=== PATIENT | male | born 1930 | race Two or more races ===

== ENCOUNTER 2016-08-19 21:24 | Inpatient (IN) ==
[2016-08-19] MEDS ORDERED: cefTRIAXone 1,000 MG in SODIUM CHLORIDE 0.9% 100 ML IV STA (22:10)
[2016-08-19] MEDS ORDERED: SODIUM CHLORIDE 0.9% 500 ML IV STA (22:10)
[2016-08-19] MEDS ORDERED: ALBUTEROL/IPRATROPIUM 3 ML NEB RESP TX STA (22:10)
[2016-08-19] MEDS ORDERED: cefTRIAXone 1,000 MG VIAL ONE (22:45)
[2016-08-19 22:46] LABS: INR 1.2; PT Patient Result 12.6 SECS
--- NOTE | 2016-08-19 22:55 | XRay Report ---
XR chest 1V portable Indication: Shortness of breath and fever. Chest one view: Comparison 11/11/2012. Bibasilar infiltrates are present. Lungs are somewhat hypoinflated as well. Borderline cardiomegaly noted. Right shoulder hemiarthroplasty is present. Impression: Bibasilar pneumonia. PROCEDURE INTERPRETED AT [facility] DEPARTMENT OF RADIOLOGY Final Report Signed by: German Bonilla M.D.
[2016-08-19 23:03] LABS: Albumin 2.8 G/DL (3.4-5.0); Bilirubin,Total 0.9 MG/DL (0.2-1.0); Calcium 8.1 MG/DL (8.5-10.1); Osmolality,Calculated 287.7 MOS/KG (273-304); Potassium 3.1 MMOL/L (3.5-5.1); Total Protein 5.8 G/DL (6.4-8.3)
[2016-08-19 23:12] LABS: Lactic Acid 1.3 MMOL/L (0.4-2.0)
[2016-08-19] MEDS ORDERED: PIPERACILLIN/TAZOBACTAM 3,375 MG in SODIUM CHLORIDE 0.9% 100 ML IV STA (23:18)
--- NOTE | 2016-08-19 23:20 | Emergency Department Note ---
Meagan Gomez Rolonda, am scribing for, and in the presence of, Loyd Jose MD 22:32. Rebeca Gomez Charles R, MD, personally performed the services described in this documentation, ascribed by Jackie Rhodes in my presence, and it is both accurate and complete 320 . Arrival - Arrival Chief Complaint: Fever ED Nursing Triage Note: Pt arrives via ems from home with complaints of fever and burning with urination that started around two days ago. Ems reports that pt refused to take his medications for the last two days and per he was hallucinating today. Pt is awake alert and oriented at time of triage. Denies hallucinations at this time. Mode of Arrival: Stretcher Limitations: Altered Mental Status Source: Significant other (), Old Records Reviewed, RN Notes Reviewed - History of Present Illness HPI Narrative: Pt is an 85 y/o male who presents to the ED via stretcher with c/o fever with an onset of x2 days ago. Pt has a Hx significant for dementia so Hx will be limited, pt's will provide history. Pt's confirms that the pt has had increased confusion and spells of hallucinations today. Pt has had some dysuria which prompts to believe that pt has a UTI. Pt is incontinent bowel and bladder which he has a stage 2 decubitis ulcer to the sacral region. Pt has a swollen left arm secondary to lying of the left side chronically. In room pt is grunting which reports is normal for him due to pain in the sacral region. No other complaints/pain reported by pt's . Onset (ago): day(s) Consistency: constant Severity: moderate Allergies/Adverse Reactions: Allergies Allergy/AdvReac Type Severity Reaction Status Date / Time No Known Allergies Allergy Verified 08/19/16 21:30 Home Medications: Home Medications Medication Instructions Recorded Confirmed Type Allopurinol 100 mg PO DAILY 08/19/16 08/19/16 History Cilostazol [Pletal] 100 mg PO BID 08/19/16 08/19/16 History Donepezil [Aricept] 5 mg PO BEDTIME 08/19/16 08/19/16 History Metoprolol Succinate 100 mg PO DAILY 08/19/16 08/19/16 History Potassium Chloride [Klor-Con 10] 10 meq PO DAILY 08/19/16 08/19/16 History Tamsulosin [Flomax] 0.4 mg PO DAILY 08/19/16 08/19/16 History Review of System - Review of System ROS unobtainable: due to mental status 12 point system: reviewed and no additional remarkable complaints except as stated - Review of System Constitutional: Present: as per HPI, fever (low grade) Eyes: Absent: discharge Head/Ears/Nose/Throat: Absent: earache Respiratory: Absent: cough Cardiovascular: Absent: chest pain Gastrointestinal: Absent: abdominal pain Genitourinary male: Present: urgency Musculoskeletal: Absent: arm pain Skin: Absent: rash Neurological: Present: headache, confusion Psychiatric: Present: visual hallucinations Endocrine: Absent: cold intolerance Hematological/Lymphatic: Absent: easy bleeding Allergic/Immunologic: Absent: facial swelling Medical,Surgical,& Family Hx - Medical History Cardio: History of: Hypertension Neurology: History of: Dementia Rheumatology: History of;: Gout Genitourinary: History of: Prostate Problems - Social History Smoking Status: Never smoker Frequency of Alcohol Use: Occasionally Type of Drug Use: None Exam Vital Signs: Vital Signs Temperature 99.6 F 08/19/16 21:24 Pulse Rate 71 08/19/16 22:22 Respiratory Rate 22 08/19/16 22:22 Blood Pressure 180/94 08/19/16 21:24 O2 Sat by Pulse Oximetry 100 08/19/16 22:22 - General General appearance: alert, in distress (secondary to pain) - Head Head exam: Present: atraumatic, normocephalic - Eye Eye exam: Present: normal appearance, PERRL, EOMI - ENT ENT exam: Present: normal exam, normal oropharynx, mucous membranes moist. Absent: mucous membranes dry - Neck Neck exam: Present: normal inspection, full ROM. Absent: tenderness - Chest Chest inspection: Present: normal inspection, symmetric chest wall rise. Absent : tenderness - Respiratory Respiratory exam: Present: respiratory distress (pt appears to be working to catch his breath) - Cardiovascular Cardiovascular exam: Present: normal rhythm, tachycardia, normal heart sounds. Absent: regular rate - Abdominal Exam Abdominal exam: Present: distention (protuberant abdomen), hypoactive bowel sounds. Absent: tenderness, normal bowel sounds - Extremities Exam Extremities exam: Present: pedal edema (2+ edema in both extremities ). Absent : normal inspection (left arm edema) - Back Exam Back exam: Present: full ROM. Absent: normal inspection (stage 2 decubitis ulcer to the sacral region), tenderness - Neurological Exam Neurological exam: Present: alert, CN II-XII intact. Absent: oriented X3 (pt is confused) - Psychiatric Psychiatric exam: Present: other (hallicunations , confused) - Skin Skin exam: Present: warm (pt is warm to touch), dry, intact. Absent: rash Course - Consultations Consultation #1: Hospitalist will admit patient Time: 23:19 Results - Labs CBC & BMP: 08/19/16 23:15 08/19/16 21:58 Lab Results: I have reviewed the patients labs Labs: Laboratory Tests 08/19/16 21:58 INR 1.2 PT Patient/Control Mix 12.6 Laboratory Tests 08/19/16 21:58 Sodium 145 Potassium 3.1 L Chloride 106 Carbon Dioxide 33 H BUN 10 Creatinine 0.60 L GFR Calculation 100 Glucose 122 H Calcium 8.1 L AST 55 H Lactate Dehydrogenase 322 H C-Reactive Protein 5.63 H Total Protein 5.8 L Albumin 2.8 L Amylase 30 Laboratory Tests 08/19/16 23:15 WBC 9.1 RBC 3.66 L Hgb 11.1 L Hct 32.9 L Plt Count 275 Neut % (Auto) 78.3 H Lymph % (Auto) 11.7 L Lymph # (Auto) 1.1 L - Diagnostic Findings Procedure: Chest x-ray: report reviewed by me (Bibasilar pneumonia.), CT: report reviewed by me, image reviewed by me (Negative CT head) Critical Care Time Critical Care Time: Yes Total Critical Care Time: 60 Disposition Clinical Impression: Sepsis, Fever, Confusion, Hallucination, Community acquired pneumonia, Decubitus ulcer of sacral area, Debility, unspecified, Failure to thrive, Hypokalemia, Hematuria, UTI (urinary tract infection) Case discussed with: patient, patient's family Disposition: Still a Patient Condition: Guarded Time of Disposition: 23:50 Sepsis - Sepsis Classification of Sepsis: Sepsis - Physical Exam Respiratory exam: rhonchi, wheezes Capillary Refill: Less Than 3 Seconds Cardiovascular exam: tachycardia Skin exam: normal color
[2016-08-19 23:27] LABS: Basophils % 0.4 % (0.0-0.8); Eosinophils # 0.1 10*3/uL (0.0-0.87); Eosinophils % 1.3 % (0.00-10.9); Hematocrit 32.9 VOL% (42.0-52.0); Hemoglobin 11.1 GM/DL (14.0-18.0); Immature Granulocytes % 0.6 %; Immature Granulocytes Absolute 0.05 #; Lymphocytes # 1.1 10*3/uL (1.4-4.0); Lymphocytes % 11.7 % (21.2-54.2); Mean Corpuscular HGB Conc 33.7 GM/DL (32-36); Mean Corpuscular Hemoglobin 30 PG (27-34); Mean Corpuscular Volume 89.9 FL (87-102); Mean Platelet Volume 10.2 FL (9.6-12.0); Monocytes # 0.7 10*3/uL (0.11-0.8); Monocytes % 7.7 % (1.7-12.7); Neutrophils # 7.1 10*3/uL (1.4-7.4); Neutrophils % 78.3 % (38.7-73.9); Platelet Count 275 T/CUMM (130-400); Red Blood Count 3.66 MC/CUMM (3.8-5.5); Red Cell Distribution Width 16.8 % (9.3-17.3); White Blood Count 9.1 T/CUMM (4-12)
[2016-08-19] MEDS ORDERED: POTASSIUM CHLORIDE 20 MEQ TABLET PO STA (23:34)
[2016-08-19] MEDS ORDERED: PIPERACILLIN/TAZOBACTAM 3,375 MG VIAL IV ONE (23:36)
[2016-08-19] MEDS ORDERED: POTASSIUM CHLORIDE 20 MEQ TABLET PO ONE (23:38)
[2016-08-20 00:24] LABS: Apearance,Urine Slightly Hazy (Clear); Bilirubin,Urine Negative (Negative); Blood, Urine Large mg/dL (Negative); Glucose,Urine (UA) Negative (Negative); Hyaline Casts,Urine 7 /LPF (0-3); Ketones,Urine 5 mg/dL (Negative); Mucus,Urine Many /LPF (Occasional); Nitrite,Urine Negative (Negative); Protein,Urine 30 MG/DL; RBC,Urine 265 /HPF (0-4); Squamous Epithelial Cell,Urine Occasional /HPF (0-10); Urine Color Amber (Yellow); Urine Specific Gravity 1.021 (1.001-1.035); WBC,Urine 7 /HPF (0-6)
[2016-08-20] MEDS ORDERED: POTASSIUM CHLORIDE 20 MEQ PACK ONE (00:31)
[2016-08-20 01:00] LABS: Sedimentation Rate-Westergren 58 MM/HR (0-20)
[2016-08-20] MEDS ORDERED: DEXTROSE 50% 25 GM/50 ML VIAL IV PRN (01:09)
[2016-08-20] MEDS ORDERED: MORPHINE 2 MG/1 ML SYRINGE IV PRN (01:09)
[2016-08-20] MEDS ORDERED: ALBUTEROL/IPRATROPIUM 3 ML NEB RESP TX PRN (01:09)
[2016-08-20] MEDS ORDERED: ONDANSETRON 4 MG/2 ML VIAL IV PRN (01:09)
[2016-08-20] MEDS ORDERED: GLUCAGON 1 MG VIAL IM PRN (01:09)
--- NOTE | 2016-08-20 01:36 | Hospitalist History & Physical ---
Assessment and Plan (1) Confusion Status: Acute Current Visit: Yes (2) Hallucinations Status: Acute Current Visit: Yes (3) Community acquired pneumonia Status: Acute Current Visit: Yes (4) Decubitus ulcer of sacral region Status: Acute Current Visit: Yes (5) Debility Status: Acute Current Visit: Yes (6) Failure to thrive Status: Acute Current Visit: Yes (7) Hypokalemia Status: Acute Current Visit: Yes (8) UTI (urinary tract infection) Status: Acute Assessment and plan: Our plan for this patient will be admission to our service. Broad coverage antibiotics will be used. Will repeat labs in the morning. Continue home meds as appropriate. Have the patient on DT prophylaxis. Will change CODE STATUS to DNR per patient's wishes. Current Visit: Yes History of Present Illness Chief complaint: Confusion History of present illness: Mr. Tamayo is a 85 year old male with past medical history of early dementia was in his normal state of health until today. Apparently patient had been having some hallucinations. He urged his to call the police. [place] did call the police so they can come talk to him. Patient was convinced that people were in his backyard. She then decided to call EMS and was brought up here for further evaluation. Patient was found to have urinary tract infection and pneumonia I was consulted to admit him. Patient does admit to heavy wine consumption. Discussed CODE STATUS with him and he would not want to be put on the ventilator. Home Medications Medication Instructions Recorded Confirmed Type Allopurinol 100 mg PO DAILY 08/19/16 08/19/16 History Cilostazol [Pletal] 100 mg PO BID 08/19/16 08/19/16 History Donepezil [Aricept] 5 mg PO BEDTIME 08/19/16 08/19/16 History Metoprolol Succinate 100 mg PO DAILY 08/19/16 08/19/16 History Potassium Chloride [Klor-Con 10] 10 meq PO DAILY 08/19/16 08/19/16 History Tamsulosin [Flomax] 0.4 mg PO DAILY 08/19/16 08/19/16 History Allergies Allergy/AdvReac Type Severity Reaction Status Date / Time No Known Allergies Allergy Verified 08/19/16 21:30 Medical,Surgical,& Family Hx - Medical History Cardio: History of: Hypertension Neurology: History of: Dementia Rheumatology: History of;: Gout Genitourinary: History of: Prostate Problems - Surgical History Reproductive Surgeries: Surgical HX of;: Prostate Surgery - Family History Additional Family History: Dementia - Social History Smoking Status: Never smoker Frequency of Alcohol Use: Occasionally Type of Drug Use: None 12 point system: reviewed and no additional remarkable complaints except as stated Exam - Constitutional Vitals: Period Temp Pulse Resp BP Sys/Lipscomb Pulse Ox Last 24 Hr 99.6 F-99.6 F 71-90 20-22 122-180/83-94 92-100 General appearance: over weight - Head Head exam: Present: normal inspection - Eye Eye exam: Present: EOMI Pupils: Present: OK - ENT ENT exam: Present: normal exam - Neck Neck exam: Present: normal inspection - Respiratory Respiratory exam: Present: clear to auscultation bilaterally - Cardiovascular Cardiovascular exam: Present: regular rate and rhythm - GI/Abdominal GI/Abdominal exam: Present: normal bowel sounds - Extremities Exam Extremities exam: Present: normal inspection - Back Exam Back exam: Present: normal inspection - Neurological Exam Neurological exam: Present: alert, oriented X3 - Psychiatric Psychiatric exam: Present: normal affect, normal mood - Skin Skin exam: Present: normal color Results - Labs CBC & BMP: 08/19/16 23:15 08/19/16 21:58
[2016-08-20] MEDS: SODIUM CHLORIDE 0.9% 1,000 ML IV SCH (02:12)
[2016-08-20] MEDS: LORazepam 2 MG/1 ML VIAL IV PRN (05:32)
[2016-08-20 06:12] LABS: Albumin 2.6 G/DL (3.4-5.0); Bilirubin,Total 0.9 MG/DL (0.2-1.0); Calcium 7.6 MG/DL (8.5-10.1); Osmolality,Calculated 287.7 MOS/KG (273-304); Potassium 3.5 MMOL/L (3.5-5.1); Risk Ratio 3.19; Total Protein 5.7 G/DL (6.4-8.3); VLDL CHOLESTEROL 26.4 MG/DL
--- NOTE | 2016-08-20 06:28 | CT Report ---
History: Confusion Date: 08/20/2016 Study: CT head without contrast Comparison exam: No previous available Transaxial CT sections were obtained through the head without IV contrast. This CT exam was performed using one or more the following dose reduction techniques: Automated exposure control, adjustment of the MA and/or KV according to patient size, or use of iterative reconstruction technique. The study was also reviewed by [facility]. The ventricles are midline in position without evidence of hydrocephalus. There is mild to moderate diffuse cerebral atrophy. There is no mass or parenchymal hemorrhage. There is no gross CT evidence of acute cortical stroke. There is a moderate amount of patchy ill-defined decreased density in the periventricular white matter without mass effect compatible with changes of small vessel disease. There is a small wedge-shaped area of chronic infarction in the right occipital lobe. Well-defined small low densities compatible with chronic lacunar infarcts are noted in the right thalamus, putamen, and jade radiata. There is no extra-axial hematoma. There is no acute abnormality of the calvarium. There is some mild lobular mucosal thickening in the maxillary sinuses. Impression: No acute intracranial process. Chronic ischemic changes. Chronic maxillary sinus disease PROCEDURE INTERPRETED AT [facility] DEPARTMENT OF RADIOLOGY Final Report Signed by: Dr. Lois Moody
[2016-08-20 06:30] LABS: Basophils % 0.3 % (0.0-0.8); Eosinophils # 0.2 10*3/uL (0.0-0.87); Eosinophils % 1.9 % (0.00-10.9); Hematocrit 30.7 VOL% (42.0-52.0); Hemoglobin 10.1 GM/DL (14.0-18.0); Immature Granulocytes % 0.4 %; Immature Granulocytes Absolute 0.04 #; Lymphocytes # 0.6 10*3/uL (1.4-4.0); Lymphocytes % 6.7 % (21.2-54.2); Mean Corpuscular HGB Conc 32.9 GM/DL (32-36); Mean Corpuscular Hemoglobin 30 PG (27-34); Mean Corpuscular Volume 91.4 FL (87-102); Mean Platelet Volume 10.3 FL (9.6-12.0); Monocytes # 0.7 10*3/uL (0.11-0.8); Monocytes % 7.2 % (1.7-12.7); Neutrophils # 7.5 10*3/uL (1.4-7.4); Neutrophils % 83.5 % (38.7-73.9); Platelet Count 252 T/CUMM (130-400); Red Blood Count 3.36 MC/CUMM (3.8-5.5); Red Cell Distribution Width 17.1 % (9.3-17.3)
--- NOTE | 2016-08-20 08:53 | EKG Report ---
Stationary ECG Study [facility] ER Test Date: 08/19/2016 9:31:39 PM Pat Name: CECILIO SCHULTE Department: Room: 288 Gender: M Research Assistant Professor: : 1930 Requested by: Loyd Angeles Order Number: [id number] Reading MD: RANDY SPENCE Intervals Bim Rate: 88 P: 42 WY: 192 QRS: -81 QRSD: 154 T: 60 QT: 410 QTc: 456 Interpretive Statements SINUS RHYTHM RIGHT BUNDLE BRANCH BLOCK INFERIOR MYOCARDIAL INFARCTION, OF INDETERMINATE AGE Electronically Signed On 08-20-16 17:11:47 CDT by RANDY SPENCE [email or web address]
[2016-08-20] MEDS ORDERED: POTASSIUM CHLORIDE 10 MEQ TABLET PO SCH (09:00)
[2016-08-20] MEDS ORDERED: FOLIC ACID 1 MG TABLET PO SCH (09:00)
[2016-08-20] MEDS ORDERED: THIAMINE 100 MG TABLET PO SCH (09:00)
[2016-08-20] MEDS ORDERED: METOPROLOL SUCCINATE XL 100 MG TABLET PO SCH (09:00)
[2016-08-20] MEDS: PIPERACILLIN/TAZOBACTAM 3,375 MG in SODIUM CHLORIDE 0.9% 100 ML IV SCH ×2 (09:12→17:29)
[2016-08-20] MEDS: INSULIN REGULAR 100 UNIT/ML SUBCUT SCH ×4 (09:14→20:59)
[2016-08-20] MEDS ORDERED: FUROSEMIDE 40 MG/4 ML VIAL ONE (09:49)
[2016-08-20] MEDS: FUROSEMIDE 40 MG/4 ML VIAL IV SCH ×2 (09:53→17:24)
[2016-08-20] MEDS: MULTIVITAMIN (CENTRUM) TABLET PO SCH (09:57)
[2016-08-20] MEDS: TAMSULOSIN 0.4 MG CAPSULE PO SCH (09:57)
[2016-08-20] MEDS: DESITIN 4OZ/NYSTATIN 15 GRAM MIXTURE PASTE TOP SCH ×2 (09:58→21:00)
[2016-08-20] MEDS: CILOSTAZOL 100 MG TABLET PO SCH ×2 (09:58→21:01)
[2016-08-20] MEDS: ALLOPURINOL 100 MG TABLET PO SCH (10:04)
[2016-08-20] MEDS: ENOXAPARIN 40 MG/0.4 ML SYRINGE SUBCUT SCH (11:02)
[2016-08-20] MEDS: PANTOPRAZOLE 40 MG VIAL IV SCH (11:03)
[2016-08-20] MEDS: methylPREDNISolone SOD SUC 125 MG/2 ML VIAL IV SCH ×3 (11:10→23:15)
[2016-08-20] MEDS: THIAMINE 200 MG/2 ML VIAL IV SCH (11:13)
--- NOTE | 2016-08-20 11:56 | Hospitalist Progress Note ---
Assessment and Plan (1) Acute respiratory failure Status: Acute Assessment and plan: multifactorial due to CHF, COPD, and pneumonia Current Visit: Yes (2) Open wound of left upper extremity Status: Acute Assessment and plan: needs debridement, consult surgery, cont vanc and zosyn Current Visit: Yes (3) Sepsis Status: Acute Assessment and plan: cont IV abx Current Visit: Yes (4) Confusion Status: Acute Assessment and plan: would check ABG, ammonia level Current Visit: Yes (5) Community acquired pneumonia Status: Acute Assessment and plan: NPO, zosyn to cover aspiration pneumonia, duonebs, speech evaluation Current Visit: Yes (6) Decubitus ulcer of sacral region Status: Acute Assessment and plan: wound care, no debridement needed Current Visit: Yes (7) Hypokalemia Status: Acute Assessment and plan: replacing Current Visit: Yes (8) Hematuria Status: Acute Assessment and plan: improving, may be due to UTI Current Visit: Yes (9) UTI (urinary tract infection) Status: Acute Assessment and plan: zosyn IV Current Visit: Yes (10) CHF (congestive heart failure) Status: Acute Assessment and plan: echo, diuresis lasix 40 mg IV every 12 hour Current Visit: Yes (11) COPD exacerbation Status: Acute Assessment and plan: duoneb, solumedrol IV, diuresis Current Visit: Yes (12) Alcoholic Status: Acute Assessment and plan: thiamine and folate, ativan prn withdrawal Current Visit: Yes Hospitalist: Subjective Interval history: Patient was in respiratory distress. He was moved down to the CCU for closer monitoring. is at bedside who is significantly younger than him. We discussed his CODE STATUS and he was changed to a DNR. Patient has severe left upper extremity wound that needs debridement. He is an alcoholic and drinks constantly most the day of red wine. He was wheezing very badly and taking in very little air at the time I saw him. Total critical care time is 40 minutes Exam - Constitutional Vitals: Period Temp Pulse Resp BP Sys/Lipscomb Pulse Ox Last 24 Hr 98.1 F-99.6 F 71-96 18-22 122-185/69-94 92-100 Exam: Heart Rate-[tachy] Lungs-[severely diminished and wheezing diffusely GI-[+bs soft, NT] Ext-[left swollen, warm, large wound Skin bottom erythema Neuro confused and distressed, no obvious signs of DT psych agitated mood and affect] General [severe acute distress] Results - Labs CBC & BMP: 08/20/16 06:22 08/20/16 05:02 Lab Results: I have reviewed the past 24 hour labs Labs: blood cx pending - Diagnostic Findings Procedure: CT: report reviewed by me (chronic ischemic changes on head ct)
[2016-08-20] MEDS ORDERED: ALBUTEROL 2.5 MG/3 ML NEB RESP TX PRN (12:01)
[2016-08-20] MEDS ORDERED: FOLIC ACID 5 MG/1 ML VIAL IV SCH (12:30)
[2016-08-20 13:06] LABS: ABG Base Excess 7.1 MMOL/L (-2.5-2.5); ABG HCO3 32.9 MMOL/L (20-26); ABG Oxygen Saturation 93.5 % (95-100); ABG PCO2 52.2 MM HG (35-48); ABG PH 7.417 (7.35-7.45); ABG PO2 66.4 MM HG (80-95); ABG TCO2 34.5 MMOL/L (23-27)
[2016-08-20] MEDS: FOLIC ACID INJ 1 MG in SYRINGE 1 EACH IV SCH (13:59)
[2016-08-20] MEDS: VANCOMYCIN INJ 1,250 MG in SODIUM CHLORIDE 0.9% 250 ML IV SCH ×2 (14:04→23:20)
[2016-08-20] MEDS: ALBUTEROL/IPRATROPIUM 3 ML NEB RESP TX SCH ×4 (14:31→23:10)
--- NOTE | 2016-08-20 15:00 | Ultrasound Report ---
History: Left upper extremity pain and swelling Date: 08/20/2016 Study: Left upper extremity color-flow venous Doppler study Comparison exam: No previous Color Doppler, wave form analysis, and compression analysis of the deep veins of the left upper extremity from the internal jugular and subclavian vein level through the elbow level shows that the veins are readily compressible. There is no abnormal intraluminal material to suggest thrombus. Waveform analysis is unremarkable. Ultrasound images were captured and archived Impression: Normal left upper extremity color flow venous Doppler study. No evidence of acute deep venous thrombosis PROCEDURE INTERPRETED AT [facility] DEPARTMENT OF RADIOLOGY Final Report Signed by: Dr. Lois Moody
--- NOTE | 2016-08-20 17:37 | ECHO Report ---
Kenneth Tamayo Exam Date: 08/20/2016 12:44 Referring Physician: Technologist: Dana Quinn Age: 85 Ht (in): 66 Wt (lb): 180 Gender: M Exam Location: [facility] Echo Indications: acute resp. failure, alcoholic, COPD, CHF, UTI, hematuria, hypokalemia, SOB, sepsis, fever, pneumonia BP: 150 / 69 HR: 96 Rhythm: Sinus Technical Quality: good IMPRESSIONS Overall ejection fraction is 55% with no regional wall motion abnormality. Diastolic parameters appear to be most consistent with grade 2 diastolic dysfunction or pseudonormalization. There is moderate concentric left ventricular hypertrophy. Mild aortic valve stenosis, mean gradient 21 mmHg, YANETH 1.9 cm. Tricuspid regurgitation velocities suggest a RVSP of 45 mmHg plus the right atrial pressure. MEASUREMENTS (Male / Female) Normal Values 2D ECHO LV Diastolic Diameter PLAX 4.6 cm 4.2 - 5.9 / 3.9 - 5.3 cm LV Systolic Diameter PLAX 2.7 cm LV Fractional Shortening PLAX 42.8 % IVS Diastolic Thickness 1.6 cm 0.6 - 1.0 / 0.6 - 0.9 cm LVPW Diastolic Thickness 1.3 cm 0.6 - 1.0 / 0.6 - 0.9 cm RV Internal Dim ED PLAX 3.2 cm Aortic Root Diameter 2.3 cm LA Systolic Diameter LX 3.7 cm 3.0 - 4.0 / 2.7 - 3.8 cm DOPPLER TR Peak Velocity 336.0 cm/s TR Peak Gradient 45.2 mmHg FINDINGS Left Ventricle There is moderate concentric left ventricular hypertrophy. Overall ejection fraction is 55% with no regional wall motion abnormality. Diastolic parameters appear to be most consistent with grade 2 diastolic dysfunction or pseudonormalization.. Right Ventricle Normal right ventricular size and systolic function. Right Atrium The right atrium is mildly enlarged. Left Atrium The left atrium is mildly enlarged. Mitral Valve Mild mitral valve sclerosis. Moderate mitral valve regurgitation. Aortic Valve Mild aortic valve stenosis. Mild aortic valve stenosis, mean gradient 21 mmHg, YANETH 1.9 cm. Mild aortic valve regurgitation. There is trace aortic insufficiency Tricuspid Valve Morphologically normal tricuspid valve. Moderate tricuspid valve regurgitation. Tricuspid regurgitation velocities suggest a RVSP of 45 mmHg plus the right atrial pressure. Pulmonic Valve Morphologically normal pulmonic valve. Trace pulmonary valve regurgitation. Pericardium No pericardial effusion. Aorta Normal size aortic root and proximal ascending aorta. Zulema Hdz (Electronically Signed) Final Date: 20 August 2016 17:36
[2016-08-20] MEDS ORDERED: cefTRIAXone 1,000 MG in SODIUM CHLORIDE 0.9% 100 ML IV SCH (21:00)
[2016-08-20] MEDS: DONEPEZIL 5 MG TABLET PO SCH (21:01)
[2016-08-21] MEDS: methylPREDNISolone SOD SUC 125 MG/2 ML VIAL IV SCH ×4 (03:02→21:13)
[2016-08-21] MEDS: ALBUTEROL/IPRATROPIUM 3 ML NEB RESP TX SCH ×6 (03:10→23:20)
[2016-08-21 04:30] LABS: Basophils % 0.1 % (0.0-0.8); Hematocrit 33.2 VOL% (42.0-52.0); Hemoglobin 10.8 GM/DL (14.0-18.0); Immature Granulocytes % 0.7 %; Immature Granulocytes Absolute 0.05 #; Lymphocytes # 0.3 10*3/uL (1.4-4.0); Lymphocytes % 4.3 % (21.2-54.2); Mean Corpuscular HGB Conc 32.5 GM/DL (32-36); Mean Corpuscular Hemoglobin 30 PG (27-34); Mean Corpuscular Volume 92.2 FL (87-102); Mean Platelet Volume 11.7 FL (9.6-12.0); Monocytes # 0.1 10*3/uL (0.11-0.8); Monocytes % 1.3 % (1.7-12.7); Neutrophils # 6.5 10*3/uL (1.4-7.4); Neutrophils % 93.6 % (38.7-73.9); Platelet Count 222 T/CUMM (130-400); Red Cell Distribution Width 17.1 % (9.3-17.3); White Blood Count 6.9 T/CUMM (4-12)
[2016-08-21 04:58] LABS: Calcium 7.6 MG/DL (8.5-10.1); Magnesium 1.8 MG/DL (1.8-2.4); Osmolality,Calculated 293.6 MOS/KG (273-304); Potassium 3.7 MMOL/L (3.5-5.1)
[2016-08-21 05:20] LABS: Hypochromasia 1+; Lymphocytes 7 % (20-55); Ovalocytes Slight; Platelet Estimate Adequate; Segmented Neutrophils 90 % (50-85); Total Cells Counted 100
--- NOTE | 2016-08-21 08:16 | Physician Query Form ---
CLICK EDIT DOCUMENT TO SELECT QUERY ANSWER --> OK --> SIGN eSlma Doran RN, CCDS Certified Clinical Supervisor [employer] W) [phone] (f) [phone] [email or web address] PROVIDERS: Make your selection(s) from the choices in EACH section by typing an "x" and enter comments in the comment section. Please use your independent medical judgment in providing your response. This request does not imply that any particular answer is desired or expected. CLINICAL INDICATORS: (Providers should not edit this section) The medical record indicates that the patient was admitted with Sepsis, pneumonia, Normal WBC, Normal Plt's, Lactic Acid Level of 1.3#, Normal Temps, Heart rate 67-124 on the first 24 hours of vital signs, and some confusion. Patient is on antibiotics. Please clarify which, if any, of the following is the etiology of the above symptoms and treatment rendered: ( ) Sepsis is a confirmed diagnosis (please include indicators here) (x ) Sepsis was ruled out. ( ) Other condition, please specify: ( ) Clinically unable to determine Criteria for Sepsis (SIRS due to an infection) should be based on 2 or more of the following being present: Temperature > 101F or < 96.8F WBC > 12,000 or < 4,000, or > 10% bands Tachycardia HR > 90 beats/minute Tachypnea RR > 20 breaths/minute or PaCO2 > 32mmHg Lactate level > 2.0 mmol/L (>4 is equivalent to severe sepsis) Altered Mental Status Mottling of skin or prolonged capillary refill Non-diabetic hyperglycemia (blood sugar >120 mg/dl) Other evidence of acute organ failure associated with sepsis ( severe sepsis) COMMENTS: PLEASE ALSO DOCUMENT RESPONSE IN PROGRESS NOTES AND/OR DISCHARGE SUMMARY Use of terms such as suspected, likely, or probable (associated with a specific diagnosis that is being evaluated, monitored, or treated as if it exists) are acceptable and can be restated in the discharge summary if not ruled out. MTDD
[2016-08-21] MEDS: INSULIN REGULAR 100 UNIT/ML SUBCUT SCH ×4 (08:28→20:46)
[2016-08-21] MEDS: PIPERACILLIN/TAZOBACTAM 3,375 MG in SODIUM CHLORIDE 0.9% 100 ML IV SCH ×3 (08:28→16:04)
[2016-08-21] MEDS: FUROSEMIDE 40 MG/4 ML VIAL IV SCH ×2 (08:28→16:01)
[2016-08-21] MEDS: ENOXAPARIN 40 MG/0.4 ML SYRINGE SUBCUT SCH (08:29)
[2016-08-21] MEDS: PANTOPRAZOLE 40 MG VIAL IV SCH (08:29)
[2016-08-21] MEDS: THIAMINE 200 MG/2 ML VIAL IV SCH (08:30)
[2016-08-21] MEDS ORDERED: MAGNESIUM SULF RIDER 4 GM in PREMIX 1 EACH IV PRN (08:57)
[2016-08-21] MEDS ORDERED: MAGNESIUM SULF RIDER 2 GM in PREMIX 1 EACH IV PRN (08:57)
[2016-08-21] MEDS: MULTIVITAMIN (CENTRUM) TABLET PO SCH (10:26)
[2016-08-21] MEDS: POTASSIUM CHLORIDE 20 MEQ TABLET PO SCH (10:27)
[2016-08-21] MEDS: TAMSULOSIN 0.4 MG CAPSULE PO SCH (10:27)
[2016-08-21] MEDS: ALLOPURINOL 100 MG TABLET PO SCH (10:27)
[2016-08-21] MEDS: CILOSTAZOL 100 MG TABLET PO SCH ×2 (10:28→20:44)
[2016-08-21] MEDS: FOLIC ACID INJ 1 MG in SYRINGE 1 EACH IV SCH (10:56)
[2016-08-21] MEDS: DESITIN 4OZ/NYSTATIN 15 GRAM MIXTURE PASTE TOP SCH ×2 (11:26→20:54)
[2016-08-21] MEDS: COLLAGENASE OINT 30 GM TUBE TOP SCH (11:26)
[2016-08-21] MEDS: VANCOMYCIN INJ 1,250 MG in SODIUM CHLORIDE 0.9% 250 ML IV SCH ×2 (11:26→23:30)
--- NOTE | 2016-08-21 11:44 | General Surgery Consult Note ---
Assessment and Plan (1) Open wound of left upper extremity Status: Acute Assessment and plan: At this point, there does not appear to be any indications for formal surgical debridement. Recommend local wound care at bedside and continued IV antibiotics. Will continue to follow along in case there is development of abscess are compensation of the wound. Current Visit: Yes History of Present Illness Chief complaint: Left arm wound History of present illness: Mr. Tamayo is a 85 year old male with past medical history of hypertension and dementia currently admitted with pneumonia, urinary tract infection, and confusion plan we are consulted for left upper extremity wound for possible debridement. The patient is a questionable history, but he reports that would have been present for approximately 1 year and he often scratches the area. Distally, he has compromised function of the extremity secondary to trauma many years ago requiring multiple surgeries; he denies any surgery to the this area of the upper arm. Home Medications Medication Instructions Recorded Confirmed Type Allopurinol 100 mg PO DAILY 08/19/16 08/19/16 History Cilostazol [Pletal] 100 mg PO BID 08/19/16 08/19/16 History Donepezil [Aricept] 5 mg PO BEDTIME 08/19/16 08/19/16 History Metoprolol Succinate 100 mg PO DAILY 08/19/16 08/19/16 History Potassium Chloride [Klor-Con 10] 10 meq PO DAILY 08/19/16 08/19/16 History Tamsulosin [Flomax] 0.4 mg PO DAILY 08/19/16 08/19/16 History Allergies Allergy/AdvReac Type Severity Reaction Status Date / Time No Known Allergies Allergy Verified 08/19/16 21:30 Medical,Surgical,& Family Hx - Medical History Cardio: History of: Hypertension Neurology: History of: Dementia Rheumatology: History of;: Gout Genitourinary: History of: Prostate Problems - Surgical History Reproductive Surgeries: Surgical HX of;: Prostate Surgery Additional Surgical History: Left upper extremity surgery status post trauma - Social History Smoking Status: Never smoker Frequency of Alcohol Use: Occasionally Type of Drug Use: None ROS unobtainable: due to mental status, due to dementia Exam - Constitutional Vitals: Period Temp Pulse Resp BP Sys/Lipscomb Pulse Ox Last 24 Hr 97.6 F-97.9 F 65-88 17-34 102-180/36-82 92-100 General appearance: no acute distress - Head Head exam: Present: normal inspection - Extremities Exam Extremities exam: Present: other (Left lower extremity inspected. There is a wound of the medial upper arm with exudative without surrounding erythema, fluctuance, or induration. No drainage, tender or significant malodor.) Results - Labs CBC & BMP: 08/21/16 03:39 08/21/16 03:39
[2016-08-21] MEDS: SODIUM CHLORIDE 0.9% 1,000 ML IV SCH (12:17)
--- NOTE | 2016-08-21 13:25 | Hospitalist Progress Note ---
Assessment and Plan (1) Acute respiratory failure Status: Acute Assessment and plan: multifactorial due to CHF, COPD, and pneumonia, cont lasix and abx Current Visit: Yes (2) Open wound of left upper extremity Status: Acute Assessment and plan: will use santyl for debridement, cont vanco Current Visit: Yes (3) Sepsis Status: Acute Assessment and plan: cont IV abx Current Visit: Yes (4) Confusion Status: Acute Assessment and plan: elevated ammonia due to alcoholic cirrhosis, lactulose, improved today, patient has an elevated CO2. Would benefit from BiPAP at nighttime while sleeping. Keep O2 real low to avoid building up CO2 Current Visit: Yes (5) Community acquired pneumonia Status: Acute Assessment and plan: cont zosyn to cover aspiration pneumonia, duonebs, repeat cxr, speech has seen him and recommend soft diet with chopped meats taking small bites and sips. Current Visit: Yes (6) Decubitus ulcer of sacral region Status: Acute Assessment and plan: wound care, no debridement needed Current Visit: Yes (7) Hypokalemia Status: Acute Assessment and plan: Resolved, continue to monitor. Current Visit: Yes (8) Hematuria Status: Acute Assessment and plan: improving, may be due to UTI Current Visit: Yes (9) UTI (urinary tract infection) Status: Acute Assessment and plan: Gram-positive cocci continue vancomycin and Zosyn Current Visit: Yes (10) CHF (congestive heart failure) Status: Acute Assessment and plan: echo, continue diuresis with lasix 40 mg IV every 12 hour Current Visit: Yes (11) COPD exacerbation Status: Acute Assessment and plan: duoneb, decrease Solu-Medrol, keep oxygen very low at 88 Current Visit: Yes (12) Alcoholic Status: Acute Assessment and plan: thiamine and folate, ativan prn withdrawal, no evidence of withdrawal Current Visit: Yes (13) Alcoholic cirrhosis Status: Acute Assessment and plan: lactulose bid Current Visit: Yes Hospitalist: Subjective Interval history: Patient shows no evidence of alcohol withdrawal. Patient is willing to go to swing bed for rehab. We will order PT and OT consults. Patient is stable today and will be moved out of the unit. Exam - Constitutional Vitals: Period Temp Pulse Resp BP Sys/Lipscomb Pulse Ox Last 24 Hr 97.6 F-98 F 65-100 17-35 102-180/36-108 92-100 Exam: Heart Rate-[RRR] Lungs-[clear but diminished less wheezing today GI-[+bs soft, NT] Ext-[left arm with wound Neuro more alert and oriented times 2 no obvious signs of DT psych pleasant mood and affect] General [no acute distress] Results - Labs CBC & BMP: 08/21/16 03:39 08/21/16 03:39 Lab Results: I have reviewed the past 24 hour labs Labs: Blood cultures 2 negative no growth, urine culture growing gram-positive cocci with greater than 100,000 colonies - Diagnostic Findings Procedure: Ultrasound: report reviewed by me (Echo EF of 55% with grade 2 diastolic dysfunction. PAP 45), X-ray: report reviewed by me (No evidence of DVT in left upper extremity)
[2016-08-21] MEDS: LACTULOSE 20 GM/30 ML UDCUP PO SCH ×2 (14:30→20:44)
--- NOTE | 2016-08-21 15:12 | XRay Report ---
History: Shortness of breath Date: 08/21/2016 Study: KUB Comparison August 19, 2016 There is continued cardiomegaly. There is mild pulmonary vascular engorgement, though this is slightly improved. The mediastinal contours are stable. There is some hazy pulmonary edema in the lower lung zones, slightly improved. There is mild bilateral pleural effusion. The patient is status post previous right shoulder replacement. Osseous structures are similar. Impression: Continued but improving bibasilar pulmonary edema compared to the previous study PROCEDURE INTERPRETED AT [facility] DEPARTMENT OF RADIOLOGY Final Report Signed by: Dr. Lois Moody
[2016-08-21] MEDS: DONEPEZIL 5 MG TABLET PO SCH (20:45)
[2016-08-22] MEDS: PIPERACILLIN/TAZOBACTAM 3,375 MG in SODIUM CHLORIDE 0.9% 100 ML IV SCH ×3 (00:31→16:41)
[2016-08-22] MEDS: ALBUTEROL/IPRATROPIUM 3 ML NEB RESP TX SCH ×6 (02:40→23:18)
[2016-08-22] MEDS: methylPREDNISolone SOD SUC 125 MG/2 ML VIAL IV SCH ×2 (03:39→08:45)
[2016-08-22 05:24] LABS: Hematocrit 30.1 VOL% (42.0-52.0); Hemoglobin 9.8 GM/DL (14.0-18.0); Immature Granulocytes % 0.5 %; Immature Granulocytes Absolute 0.05 #; Lymphocytes # 0.3 10*3/uL (1.4-4.0); Lymphocytes % 3.4 % (21.2-54.2); Mean Corpuscular HGB Conc 32.6 GM/DL (32-36); Mean Corpuscular Hemoglobin 30 PG (27-34); Mean Corpuscular Volume 91.8 FL (87-102); Mean Platelet Volume 10.5 FL (9.6-12.0); Monocytes # 0.5 10*3/uL (0.11-0.8); Monocytes % 4.6 % (1.7-12.7); Neutrophils % 91.5 % (38.7-73.9); Platelet Count 297 T/CUMM (130-400); Red Blood Count 3.28 MC/CUMM (3.8-5.5); Red Cell Distribution Width 17.3 % (9.3-17.3); White Blood Count 9.8 T/CUMM (4-12)
[2016-08-22 05:47] LABS: Calcium 7.9 MG/DL (8.5-10.1); Magnesium 2.3 MG/DL (1.8-2.4); Osmolality,Calculated 298.6 MOS/KG (273-304); Potassium 3.2 MMOL/L (3.5-5.1)
[2016-08-22 06:08] LABS: Lymphocytes 2 % (20-55); Segmented Neutrophils 95 % (50-85); Total Cells Counted 100
[2016-08-22 06:09] LABS: Hypochromasia 1+; Microcytosis 1+
[2016-08-22 06:10] LABS: Platelet Estimate Normal
[2016-08-22] MEDS: INSULIN REGULAR 100 UNIT/ML SUBCUT SCH ×4 (08:33→21:38)
[2016-08-22] MEDS: MULTIVITAMIN (CENTRUM) TABLET PO SCH (08:35)
[2016-08-22] MEDS: LACTULOSE 20 GM/30 ML UDCUP PO SCH ×2 (08:36→21:37)
[2016-08-22] MEDS: THIAMINE 200 MG/2 ML VIAL IV SCH (08:36)
[2016-08-22] MEDS: TAMSULOSIN 0.4 MG CAPSULE PO SCH (08:36)
[2016-08-22] MEDS: POTASSIUM CHLORIDE 20 MEQ TABLET PO SCH (08:36)
[2016-08-22] MEDS: CILOSTAZOL 100 MG TABLET PO SCH (08:36)
[2016-08-22] MEDS: ALLOPURINOL 100 MG TABLET PO SCH (08:36)
[2016-08-22] MEDS: FUROSEMIDE 40 MG/4 ML VIAL IV SCH (08:39)
[2016-08-22] MEDS: PANTOPRAZOLE 40 MG VIAL IV SCH (08:42)
[2016-08-22] MEDS: DESITIN 4OZ/NYSTATIN 15 GRAM MIXTURE PASTE TOP SCH ×2 (08:52→21:38)
[2016-08-22] MEDS: COLLAGENASE OINT 30 GM TUBE TOP SCH (08:55)
--- NOTE | 2016-08-22 09:14 | Physician Query Form ---
CLICK EDIT DOCUMENT TO SELECT QUERY ANSWER --> OK --> SIGN Selma Doran RN, CCDS Certified Clinical Chlorine Operator W) [phone] (f) [phone] [email or web address] PROVIDERS: Make your selection(s) from the choices in EACH section by typing an "x" and enter comments in the comment section. Please use your independent medical judgment in providing your response. This request does not imply that any particular answer is desired or expected. CLINICAL INDICATORS: (Providers should not edit this section) The medical record indicates that the patient was admitted with AMS, " CHF ( congestive heart failure) Acute", BNP of 1974#, "Echo EF of 55% with grade 2 diastolic dysfunction" AND the patient was treated with IV Lasix. Please provide further specificity regarding CHF. ACUITY: ( ) Acute ( ) Chronic ( ) Acute on Chronic ( ) Clinically unable to determine TYPE: ( ) Systolic (HFrEF - heart failure with reduced systolic function/EF) ( ) Diastolic (HFpEF - heart failure with preserved systolic function/EF) ( ) Combined Systolic/Diastolic ( ) Other, please specify: ( ) Clinically unable to determine ( ) The patient does NOT have CHF COMMENTS:see progress note from today PLEASE ALSO DOCUMENT RESPONSE IN PROGRESS NOTES AND/OR DISCHARGE SUMMARY Use of terms such as suspected, likely, or probable (associated with a specific diagnosis that is being evaluated, monitored, or treated as if it exists) are acceptable and can be restated in the discharge summary if not ruled out. MTDD
--- NOTE | 2016-08-22 09:16 | Physician Query Form ---
CLICK EDIT DOCUMENT TO SELECT QUERY ANSWER --> OK --> SIGN Selma Doran RN, CCDS Certified Clinical Supervisor Instrument Mechanics W) [phone] (f) [phone] [email or web address] PROVIDERS: Make your selection(s) from the choices in EACH section by typing an "x" and enter comments in the comment section. Please use your independent medical judgment in providing your response. This request does not imply that any particular answer is desired or expected. CLINICAL INDICATORS: (Providers should not edit this section) The medical record indicates that the patient was admitted with AMS, " elevated ammonia due to alcoholic cirrhosis, lactulose, improved today, patient has an elevated CO2".--- [Patient also had CT of the brain]--Ammonia 39# ACUITY: ( x) Acute ( ) Acute on Chronic ( ) Chronic ( ) Clinically unable to determine NATURE: ( x) Delirium due to general medical condition- sepsis ( ) Dementia ( ) Encephalopathy ( x) Hepatic Encephalopathy ( ) Unconscious ( ) Transient level of awareness ( ) Comatose ( ) Locked-in State ( ) Persistent Vegetative State ( x) Other, please specify:alcoholic withdrawals ( ) Clinically unable to determine Please indicate the underlying cause of the altered mental status (CHECK ALL THAT APPLY): ( ) Baseline dementia ( ) Alzheimer's disease ( ) Parkinson's disease ( ) Lewy body dementia ( ) Acute stroke ( ) Late effect of stroke ( ) Reactive (from emotional stress, psychological trauma) ( ) Due to narcotics/other drugs ( ) Post procedural delirium ( ) Transient ischemic attack ( ) Generalized cerebral edema ( ) Normal pressure hydrocephalus ( ) Psychiatric illness ( ) Other, please specify: ( ) Clinically unable to determine Please indicate if there is an infection, sepsis, dehydration or specific organ failure that is causing the dementia. Be specific with clarifying the relationship between that process and the mental status change. COMMENTS: PLEASE ALSO DOCUMENT RESPONSE IN PROGRESS NOTES AND/OR DISCHARGE SUMMARY Use of terms such as suspected, likely, or probable (associated with a specific diagnosis that is being evaluated, monitored, or treated as if it exists) are acceptable and can be restated in the discharge summary if not ruled out. MTDD
[2016-08-22] MEDS: ENOXAPARIN 40 MG/0.4 ML SYRINGE SUBCUT SCH (09:27)
[2016-08-22] MEDS: FOLIC ACID INJ 1 MG in SYRINGE 1 EACH IV SCH (09:28)
[2016-08-22] MEDS: VANCOMYCIN INJ 1,250 MG in SODIUM CHLORIDE 0.9% 250 ML IV SCH (12:11)
--- NOTE | 2016-08-22 12:22 | Hospitalist Progress Note ---
Hospitalist: Subjective Interval history: Pt is awake and alert. +tolerating po. +BM loose today per nurse. No abd pain. No fever. No cp and pt denies SOB. Exam - Constitutional Vitals: Period Temp Pulse Resp BP Sys/Lipscomb Pulse Ox Last 24 Hr 97.6 F-99.2 F 71-109 18-35 106-150/53-108 92-100 Exam: GEN: Awake, alert, chronically ill appearing CV: RRR 1/6 systolic M Lungs-CTAB nonlabored, diminished lung sounds throughout ABD: soft, NT, ND, +BS Ext: left arm ulcer no surround erythema. No active drainage; GEE PSYCH: pleasant mood and affect Results - Labs CBC & BMP: 08/22/16 04:49 08/22/16 04:49 - Impressions (1) Acute hypoxic and hypercarbic respiratory failure due to acute CHF and COPD exacerbation and pneumonia Status: Acute Assessment and plan: -cont Lasix and antibiotics. Wean steroids. Cont bronchodilators/ inhalers and oxygen as needed. Current Visit: Yes (2) Noninfected left upper extremity ulcer not stageable in a patient with PAD. Status: Acute Assessment and plan: - Will use santyl for debridement, Hold vancomycin for now due to elevated trough. Hold Pletal as it can be associated with fluid retention/ contraindicated with CHF. Consider Trental if needed for PAD pain. -No evidence of DVT in left upper extremity Current Visit: Yes (3) Sepsis- resolved Status: Acute Assessment and plan: Hold Vancomycin as vanc trough 30 today. Cont Antibiotics otherwise. F/U Blood cultures show no growth to date. Current Visit: Yes (4) Acute metabolic/ toxic encephalopathy due to hepatic encephalopathy, CO2 narcosis-improved Status: Acute Assessment and plan: - Suspect MELBA - Cont BiPAP at nighttime while sleeping. Sleep evaluation outpt - Keep O2 real low to avoid building up CO2 Current Visit: Yes (5) Pneumonia presumed aspiration Status: Acute Assessment and plan: - Cont Mague Veloz - Repeat CXR 08/21 showed improvement - Speech has seen him and recommend soft diet with chopped meats taking small bites and sips. - Aspiration precautions Current Visit: Yes (6) Stage 2 decubitus ulcer of sacral region Status: Acute Assessment and plan: - Wound care, no debridement at this time. Current Visit: Yes (7) Hypokalemia Status: Acute Assessment and plan: - Resolved, continue to monitor. Current Visit: Yes (8) Hematuria Status: Acute Assessment and plan: - improving, may be due to UTI Current Visit: Yes (9) UTI (urinary tract infection)/ cystitis due to lactobacillus Status: Acute Assessment and plan: - Cont Zosyn. Current Visit: Yes (10) Acute grade 2 diastolic congestive heart failure exacerbation Status: Acute Assessment and plan: - Echo showed EF of 55% with grade 2 diastolic dysfunction. PAP 45echo - Seems improved. May be able to wean lasix to po. Current Visit: Yes (11) Alcoholic cirrhosis Status: Acute Assessment and plan: - Change thiamine and folate to po. Cont MVI. Cont Ativan IV prn withdrawal, no evidence of withdrawal at this time - Will cont lactulose to prevent hepatic encephalopathy - Cont Lasix for fluid mgt. Consider aldactone when creatinine stabilizes to prevent increased portal hypertension Current Visit: Yes (12) Diarrhea - likely from lactulose. Check C diff and stool culture just to make sure Renally dose Lovenox for DVT prophylaxis - DC planning D/W nursing staff and pt and all questions answered.
[2016-08-22] MEDS ORDERED: POTASSIUM CHLORIDE 20 MEQ TABLET PO ONE (14:00)
[2016-08-22] MEDS ORDERED: methylPREDNISolone SOD SUC 40 MG/1 ML VIAL IV SCH (15:00)
[2016-08-22] MEDS: LORazepam 2 MG/1 ML VIAL IV PRN (16:42)
[2016-08-22] MEDS: FUROSEMIDE 40 MG TABLET PO SCH (16:44)
[2016-08-22] MEDS: DONEPEZIL 5 MG TABLET PO SCH (21:37)
[2016-08-22] MEDS: methylPREDNISolone SOD SUC 40 MG/1 ML VIAL IV SCH (21:37)
[2016-08-23] MEDS: PIPERACILLIN/TAZOBACTAM 3,375 MG in SODIUM CHLORIDE 0.9% 100 ML IV SCH ×3 (00:50→16:20)
[2016-08-23] MEDS: ALBUTEROL/IPRATROPIUM 3 ML NEB RESP TX SCH ×6 (03:03→23:30)
[2016-08-23 04:07] LABS: Basophils % 0.1 % (0.0-0.8); Hematocrit 30.3 VOL% (42.0-52.0); Hemoglobin 9.7 GM/DL (14.0-18.0); Immature Granulocytes % 1.2 %; Immature Granulocytes Absolute 0.11 #; Lymphocytes # 0.2 10*3/uL (1.4-4.0); Lymphocytes % 2.7 % (21.2-54.2); Mean Corpuscular Hemoglobin 30 PG (27-34); Mean Corpuscular Volume 93.2 FL (87-102); Mean Platelet Volume 10.7 FL (9.6-12.0); Monocytes # 0.3 10*3/uL (0.11-0.8); Monocytes % 2.9 % (1.7-12.7); Neutrophils # 8.3 10*3/uL (1.4-7.4); Neutrophils % 93.1 % (38.7-73.9); Platelet Count 306 T/CUMM (130-400); Red Blood Count 3.25 MC/CUMM (3.8-5.5); Red Cell Distribution Width 17.8 % (9.3-17.3); White Blood Count 8.9 T/CUMM (4-12)
[2016-08-23 04:14] LABS: Calcium 7.7 MG/DL (8.5-10.1); Magnesium 2.3 MG/DL (1.8-2.4); Potassium 3.8 MMOL/L (3.5-5.1)
[2016-08-23 04:55] LABS: Lymphocytes 7 % (20-55); Segmented Neutrophils 91 % (50-85); Total Cells Counted 100
[2016-08-23 04:56] LABS: Anisocytosis 1+; Basophilic Stippling Slight; Hypochromasia Slight; Platelet Estimate Normal; Polychromasia Slight
--- NOTE | 2016-08-23 08:10 | Hospitalist Progress Note ---
Hospitalist: Subjective Interval history: Pt denies cp or SOB. Had mild choking this am when drank water. No fever. Exam - Constitutional Vitals: Period Temp Pulse Resp BP Sys/Lipscomb Pulse Ox Last 24 Hr 97.4 F-98.7 F 68-115 16-28 117-154/62-82 90-99 Exam: GEN: Awake, alert, chronically ill appearing CV: RRR 1/6 systolic M Lungs-CTAB nonlabored, diminished lung sounds throughout ABD: soft, NT, ND, +BS Ext: left arm ulcer no surround erythema. No active drainage; GEE PSYCH: pleasant mood and affect Results - Labs CBC & BMP: 08/23/16 03:13 08/23/16 03:13 - Impressions (1) Acute hypoxic and hypercarbic respiratory failure due to acute CHF and COPD exacerbation and pneumonia Status: Acute Assessment and plan: -cont Lasix and antibiotics. Wean steroids. Cont bronchodilators/ inhalers and oxygen as needed. Current Visit: Yes (2) Noninfected left upper extremity ulcer not stageable in a patient with PAD. Status: Acute Assessment and plan: - Will use santyl for debridement, Hold vancomycin for now due to elevated trough. Hold Pletal as it can be associated with fluid retention/ contraindicated with CHF. Consider Trental if needed for PAD pain. - No evidence of DVT in left upper extremity on venous duplex Current Visit: Yes (3) Acute renal failure possibly due to vanc toxicity Status: Acute Assessment and plan: - Holding vanc. Renally dose meds. Decrease Lasix. Serial labs. If worsens, may need to consider renal consult Current Visit: Yes (4) Acute metabolic/ toxic encephalopathy due to hepatic encephalopathy, CO2 narcosis-improved Status: Acute Assessment and plan: - Suspect MELBA - Cont BiPAP at nighttime while sleeping. Sleep evaluation outpt - Keep O2 low to avoid building up CO2 Current Visit: Yes (5) Pneumonia presumed aspiration Status: Acute Assessment and plan: - Cont Zosyn, Duonebs - Repeat CXR 08/21 showed improvement - Speech has seen him and recommend soft diet with chopped meats taking small bites and sips. - Aspiration precautions Current Visit: Yes (6) Stage 2 decubitus ulcer of sacral region Status: Acute Assessment and plan: - Wound care, no debridement at this time. Current Visit: Yes (7) Hypokalemia Status: Acute Assessment and plan: - Resolved, continue to monitor. Current Visit: Yes (8) Hematuria Status: Acute Assessment and plan: - improved, may be due to UTI Current Visit: Yes (9) Sepsis due to UTI (urinary tract infection)/ cystitis due to lactobacillus and presumed aspiration pneumonia- improved Status: Acute Assessment and plan: - Cont Zosyn. - Hold Vancomycin. Vanc trough was 30. Cont Antibiotics otherwise. F/U Blood cultures show no growth to date Current Visit: Yes (10) Acute grade 2 diastolic congestive heart failure exacerbation- appears compensated at this time. Status: Acute Assessment and plan: - Echo showed EF of 55% with grade 2 diastolic dysfunction. PAP 45echo - Seems improved. Decrease lasix. Watch I and O/ daily weights. Current Visit: Yes (11) Alcoholic cirrhosis Status: Acute Assessment and plan: - Change thiamine and folate to po. Cont MVI. Cont Ativan IV prn withdrawal, no evidence of withdrawal at this time - Will cont lactulose to prevent hepatic encephalopathy - Cont Lasix for fluid mgt. Consider aldactone when creatinine stabilizes to prevent increased portal hypertension Current Visit: Yes (12) Diarrhea- improved - likely from lactulose. C diff and stool culture ordered but not sent due to no further diarrhea reported. Renally dose Lovenox for DVT prophylaxis - DC planning D/W nursing staff and pt and all questions answered. I will be away several days. One of my associates will follow in my absence.
[2016-08-23] MEDS: INSULIN REGULAR 100 UNIT/ML SUBCUT SCH ×4 (08:14→21:12)
[2016-08-23] MEDS: PANTOPRAZOLE 40 MG TABLET PO SCH (08:16)
[2016-08-23] MEDS: LACTULOSE 20 GM/30 ML UDCUP PO SCH ×2 (08:16→21:15)
[2016-08-23] MEDS: POTASSIUM CHLORIDE 20 MEQ TABLET PO SCH (08:17)
[2016-08-23] MEDS: THIAMINE 100 MG TABLET PO SCH (08:22)
[2016-08-23] MEDS: MULTIVITAMIN (CENTRUM) TABLET PO SCH (08:22)
[2016-08-23] MEDS: ALLOPURINOL 100 MG TABLET PO SCH (08:23)
[2016-08-23] MEDS: FOLIC ACID 1 MG TABLET PO SCH (08:23)
[2016-08-23] MEDS: TAMSULOSIN 0.4 MG CAPSULE PO SCH (08:23)
[2016-08-23] MEDS: methylPREDNISolone SOD SUC 40 MG/1 ML VIAL IV SCH ×2 (08:33→21:12)
[2016-08-23] MEDS: ENOXAPARIN 30 MG/0.3 ML SYRINGE SUBCUT SCH (08:35)
[2016-08-23] MEDS: COLLAGENASE OINT 30 GM TUBE TOP SCH (08:36)
[2016-08-23] MEDS: FUROSEMIDE 40 MG TABLET PO SCH (09:19)
[2016-08-23] MEDS: DESITIN 4OZ/NYSTATIN 15 GRAM MIXTURE PASTE TOP SCH ×2 (11:30→21:15)
[2016-08-23] MEDS: FUROSEMIDE 20 MG TABLET PO SCH (16:20)
[2016-08-23] MEDS: DONEPEZIL 5 MG TABLET PO SCH (21:12)
[2016-08-23] MEDS: LORazepam 2 MG/1 ML VIAL IV PRN (23:19)
[2016-08-24] MEDS: PIPERACILLIN/TAZOBACTAM 3,375 MG in SODIUM CHLORIDE 0.9% 100 ML IV SCH ×3 (00:27→17:15)
[2016-08-24] MEDS ORDERED: ALBUTEROL/IPRATROPIUM 3 ML NEB RESP TX ONE (00:56)
[2016-08-24] MEDS: ALBUTEROL/IPRATROPIUM 3 ML NEB RESP TX SCH ×6 (03:29→23:19)
[2016-08-24 05:30] LABS: Hematocrit 33.7 VOL% (42.0-52.0); Hemoglobin 10.7 GM/DL (14.0-18.0); Immature Granulocytes % 2.3 %; Immature Granulocytes Absolute 0.24 #; Lymphocytes # 0.3 10*3/uL (1.4-4.0); Mean Corpuscular HGB Conc 31.8 GM/DL (32-36); Mean Corpuscular Hemoglobin 30 PG (27-34); Mean Corpuscular Volume 94.9 FL (87-102); Mean Platelet Volume 10.6 FL (9.6-12.0); Monocytes # 0.3 10*3/uL (0.11-0.8); Monocytes % 2.9 % (1.7-12.7); Neutrophils # 9.4 10*3/uL (1.4-7.4); Neutrophils % 91.8 % (38.7-73.9); Platelet Count 294 T/CUMM (130-400); Red Blood Count 3.55 MC/CUMM (3.8-5.5); Red Cell Distribution Width 17.3 % (9.3-17.3); White Blood Count 10.2 T/CUMM (4-12)
[2016-08-24 06:00] LABS: Band Neutrophils 3 % (0-10); Hypochromasia 1+; Lymphocytes 3 % (20-55); Microcytosis Slight; Platelet Estimate Adequate; Segmented Neutrophils 93 % (50-85); Total Cells Counted 100
[2016-08-24] MEDS: INSULIN REGULAR 100 UNIT/ML SUBCUT SCH ×4 (08:50→20:55)
[2016-08-24] MEDS: TAMSULOSIN 0.4 MG CAPSULE PO SCH ×2 (08:50→08:51)
[2016-08-24] MEDS: POTASSIUM CHLORIDE 20 MEQ TABLET PO SCH ×2 (08:50→08:51)
[2016-08-24] MEDS: FUROSEMIDE 20 MG TABLET PO SCH ×2 (08:50→08:51)
[2016-08-24] MEDS: FOLIC ACID 1 MG TABLET PO SCH ×2 (08:50→08:51)
[2016-08-24] MEDS: PANTOPRAZOLE 40 MG TABLET PO SCH ×2 (08:50→08:51)
[2016-08-24] MEDS: ALLOPURINOL 100 MG TABLET PO SCH ×2 (08:50→08:51)
[2016-08-24] MEDS: MULTIVITAMIN (CENTRUM) TABLET PO SCH ×2 (08:50→08:51)
[2016-08-24] MEDS: THIAMINE 100 MG TABLET PO SCH ×2 (08:50→08:51)
[2016-08-24] MEDS: methylPREDNISolone SOD SUC 40 MG/1 ML VIAL IV SCH ×3 (08:50→20:49)
[2016-08-24] MEDS: ENOXAPARIN 30 MG/0.3 ML SYRINGE SUBCUT SCH (08:52)
[2016-08-24] MEDS: LACTULOSE 20 GM/30 ML UDCUP PO SCH ×2 (08:52→20:55)
[2016-08-24] MEDS: DESITIN 4OZ/NYSTATIN 15 GRAM MIXTURE PASTE TOP SCH ×2 (08:52→21:45)
--- NOTE | 2016-08-24 09:08 | XRay Report ---
Portable chest Date: 08/24/2016 Clinical history: Shortness of breath Comparison: 08/21/2016 Technique: Portable AP sitting chest Findings: The heart is larger in size with progressive parenchymal findings and larger pleural effusions. Status post right shoulder replacement with degenerative changes. Impression: Progressive moderately severe pulmonary edema/bilateral pneumonia. Findings are more prominent in the right lung with larger moderate right and small left pleural effusions. PROCEDURE INTERPRETED AT [facility] DEPARTMENT OF RADIOLOGY Final Report Signed by: Dr. Tracy Lacy
--- NOTE | 2016-08-24 09:17 | Event Note ---
I was called by the nursing staff to see the patient due to sudden onset of shortness of breath and wheezing that developed this morning. The patient was admitted to the hospital with acute combined hypoxic and hypercapnic respiratory failure with CHF and COPD exacerbation as well as pneumonia. The nurse reports that the patient developed some worsening wheezing and cough following taking his medications this morning. At the time of my examination the patient was breathing 36 times per minute with audible wheezing noted. He was notably short of breath and complained of shortness of breath as well. The patient's oxygen saturation was noted to be 90% and he was receiving DuoNeb treatment at the time of my examination. Due to the acute nature of the patient 's CHF and COPD, we will place patient on BiPAP at 10/5. We will also change Lasix to IV from oral medication to increase diuresis. Will obtain an ABG to further evaluate his oxygenation and a CO2 level. The patient CODE STATUS is DO NOT RESUSCITATE. We will attempt to improve his respiratory status with noninvasive mechanical ventilation.
[2016-08-24] MEDS: FUROSEMIDE 20 MG/2 ML VIAL IV SCH ×2 (10:18→17:15)
--- NOTE | 2016-08-24 10:24 | Hospitalist Progress Note ---
Assessment and Plan (1) Acute respiratory failure Status: Acute Current Visit: Yes (2) CHF (congestive heart failure) Status: Acute Current Visit: Yes Qualifiers: Congestive heart failure type: diastolic Congestive heart failure chronicity: acute Qualified Code(s): I50.31 - Acute diastolic (congestive) heart failure (3) Community acquired pneumonia Status: Acute Current Visit: Yes (4) COPD exacerbation Status: Acute Current Visit: Yes (5) Alcoholic cirrhosis Status: Acute Assessment and plan: -Continue oxygen per nasal cannula, continue BiPAP, breathing improved with BiPAP today -Continue Lasix for diuresis -Continue IV steroids and nebulized breathing treatments -Continue IV antibiotics with Zosyn for probable aspiration pneumonia; will order a swallow study to evaluate the patient's aspiration risk; stop vancomycin -Continue to monitor blood counts and electrolytes closely -Continue lactulose to patient's mental status is stable at this time Current Visit: Yes Hospitalist: Subjective Interval history: Patient admitted with acute exacerbation of COPD and CHF resulting in acute respiratory failure. The patient was noted to have acute exacerbation of his respiratory failure this morning. He has since been placed on a BiPAP, is doing well. He is currently sleeping soundly but arousable. Exam - Constitutional Vitals: Period Temp Pulse Resp BP Sys/Lipscomb Pulse Ox Last 24 Hr 97.4 F-98.3 F 91-112 18-45 154-164/68-96 90-100 General appearance: other (Elderly male, awake and responsive) - Head Head exam: Present: normal inspection - Eye Eye exam: Present: EOMI Pupils: Present: OK - ENT ENT exam: Present: other (BiPAP machine in place) - Respiratory Respiratory exam: Present: wheezes (Expiratory wheezing bilaterally, right now 20-24 respirations per minute). Absent: decreased breath sounds, rales, rhonchi - Cardiovascular Cardiovascular exam: Present: tachycardia. Absent: bradycardia, diastolic murmur - GI/Abdominal GI/Abdominal exam: Present: normal bowel sounds, soft. Absent: guarding, tenderness - Extremities Exam Extremities exam: Present: normal inspection, full ROM, edema - Neurological Exam Neurological exam: Present: alert, oriented X3, CN II-XII intact - Psychiatric Psychiatric exam: Present: normal affect - Skin Skin exam: Present: normal color Results - Labs CBC & BMP: 08/24/16 05:16 08/23/16 03:13 Lab Results: I have reviewed the past 24 hour labs
[2016-08-24] MEDS: COLLAGENASE OINT 30 GM TUBE TOP SCH (12:05)
[2016-08-24] MEDS: DONEPEZIL 5 MG TABLET PO SCH (20:55)
[2016-08-24] MEDS: DEXTROSE 5% NACL 0.45% 1,000 ML IV SCH (21:45)
[2016-08-24] MEDS: LORazepam 2 MG/1 ML VIAL IV PRN (23:31)
[2016-08-25] MEDS: PIPERACILLIN/TAZOBACTAM 3,375 MG in SODIUM CHLORIDE 0.9% 100 ML IV SCH ×3 (00:02→17:25)
[2016-08-25] MEDS: ALBUTEROL/IPRATROPIUM 3 ML NEB RESP TX SCH ×5 (02:52→18:40)
[2016-08-25 06:31] LABS: Calcium 8.4 MG/DL (8.5-10.1); Osmolality,Calculated 298.7 MOS/KG (273-304); Potassium 4.4 MMOL/L (3.5-5.1)
[2016-08-25 06:35] LABS: Basophils % 0.3 % (0.0-0.8); Eosinophils % 0.1 % (0.00-10.9); Hematocrit 36.9 VOL% (42.0-52.0); Hemoglobin 11.7 GM/DL (14.0-18.0); Immature Granulocytes % 2.2 %; Immature Granulocytes Absolute 0.16 #; Lymphocytes # 0.3 10*3/uL (1.4-4.0); Lymphocytes % 4.4 % (21.2-54.2); Mean Corpuscular HGB Conc 31.7 GM/DL (32-36); Mean Corpuscular Hemoglobin 31 PG (27-34); Mean Corpuscular Volume 96.3 FL (87-102); Mean Platelet Volume 11.3 FL (9.6-12.0); Monocytes # 0.2 10*3/uL (0.11-0.8); Neutrophils # 6.7 10*3/uL (1.4-7.4); Platelet Count 237 T/CUMM (130-400); Red Blood Count 3.83 MC/CUMM (3.8-5.5); Red Cell Distribution Width 17.2 % (9.3-17.3); White Blood Count 7.4 T/CUMM (4-12)
[2016-08-25 06:54] LABS: Hypochromasia 1+; Lymphocytes 1 % (20-55); Platelet Estimate Adequate; Segmented Neutrophils 98 % (50-85); Total Cells Counted 100
[2016-08-25 06:55] LABS: Microcytosis Slight; Ovalocytes Slight
[2016-08-25] MEDS: INSULIN REGULAR 100 UNIT/ML SUBCUT SCH ×4 (10:16→20:35)
--- NOTE | 2016-08-25 10:21 | Hospitalist Progress Note ---
Assessment and Plan (1) CHF (congestive heart failure) Status: Acute Assessment and plan: Impression: 1. Acute diastolic heart failure 2. Possible pneumonia 3. Alcoholic cirrhosis 4. Deconditioning Plan: He is having a swallowing study today. Referral has been made to [facility]. We need to adjust his cardiac medications, and work on further diuresis to clear the pulmonary vascular congestion prior to discharge. The x-ray looks more like failure to me, although it could be related to pneumonia. This note was completed using [email or web address] voice recognition software. There may be cattle and wheat farmer errors as a result. Current Visit: Yes Qualifiers: Congestive heart failure type: diastolic Congestive heart failure chronicity: acute Qualified Code(s): I50.31 - Acute diastolic (congestive) heart failure Hospitalist: Subjective Interval history: Follow-up acute diastolic congestive heart failure, hepatic cirrhosis, COPD, and possible pneumonia. The patient says that he wants to go home. Family is interested in swing bed placement, and referral has been made to the [facility]. The patient's chest x-ray is showing a progressive worsening of the right sided pleural effusion. The patient's ambulatory status at home is very poor. He had to go on BiPAP last night, but denies any dyspnea at this time. He is currently off of BiPAP Exam - Constitutional Vitals: Period Temp Pulse Resp BP Sys/Lipscomb Pulse Ox Last 24 Hr 97 F-97.9 F 75-90 18-28 146-163/79-93 92-99 Vital signs are noted above. Heart is regular with distant tones. Chest is fairly clear anteriorly. He has a few rhonchi, and some decreased breath sounds in the posterior lung gillespie on the right. Abdomen is soft with good bowel sounds. He is awake and alert Results - Labs CBC & BMP: 08/25/16 05:22 08/25/16 05:22 Lab Results: I have reviewed the past 24 hour labs
[2016-08-25] MEDS: FUROSEMIDE 20 MG/2 ML VIAL IV SCH ×2 (10:46→17:19)
[2016-08-25] MEDS: MULTIVITAMIN (CENTRUM) TABLET PO SCH (10:49)
[2016-08-25] MEDS: POTASSIUM CHLORIDE 20 MEQ TABLET PO SCH (10:50)
[2016-08-25] MEDS: TAMSULOSIN 0.4 MG CAPSULE PO SCH (10:50)
[2016-08-25] MEDS: ENOXAPARIN 40 MG/0.4 ML SYRINGE SUBCUT SCH (10:50)
[2016-08-25] MEDS: FOLIC ACID 1 MG TABLET PO SCH (10:50)
[2016-08-25] MEDS: LACTULOSE 20 GM/30 ML UDCUP PO SCH ×2 (10:50→20:43)
[2016-08-25] MEDS: DESITIN 4OZ/NYSTATIN 15 GRAM MIXTURE PASTE TOP SCH ×2 (10:52→20:44)
[2016-08-25] MEDS: PANTOPRAZOLE 40 MG TABLET PO SCH (10:52)
[2016-08-25] MEDS: COLLAGENASE OINT 30 GM TUBE TOP SCH (10:52)
[2016-08-25] MEDS: THIAMINE 100 MG TABLET PO SCH (10:53)
[2016-08-25] MEDS: methylPREDNISolone SOD SUC 40 MG/1 ML VIAL IV SCH ×2 (10:57→20:35)
[2016-08-25] MEDS: ALLOPURINOL 100 MG TABLET PO SCH (11:27)
[2016-08-25] MEDS: DEXTROSE 5% NACL 0.45% 1,000 ML IV SCH (18:48)
[2016-08-25] MEDS: DONEPEZIL 5 MG TABLET PO SCH (20:35)
[2016-08-26] MEDS: LORazepam 2 MG/1 ML VIAL IV PRN ×2 (00:19→21:15)
[2016-08-26] MEDS: ALBUTEROL/IPRATROPIUM 3 ML NEB RESP TX SCH ×6 (00:19→19:07)
[2016-08-26] MEDS: PIPERACILLIN/TAZOBACTAM 3,375 MG in SODIUM CHLORIDE 0.9% 100 ML IV SCH ×3 (00:19→17:07)
[2016-08-26] MEDS: COLLAGENASE OINT 30 GM TUBE TOP SCH (09:00)
[2016-08-26] MEDS: LACTULOSE 20 GM/30 ML UDCUP PO SCH ×2 (09:32→21:15)
[2016-08-26] MEDS: FUROSEMIDE 20 MG/2 ML VIAL IV SCH ×2 (09:32→17:06)
[2016-08-26] MEDS: methylPREDNISolone SOD SUC 40 MG/1 ML VIAL IV SCH ×2 (09:33→21:16)
[2016-08-26] MEDS: FOLIC ACID 1 MG TABLET PO SCH (09:34)
[2016-08-26] MEDS: TAMSULOSIN 0.4 MG CAPSULE PO SCH (09:34)
[2016-08-26] MEDS: ALLOPURINOL 100 MG TABLET PO SCH (09:34)
[2016-08-26] MEDS: POTASSIUM CHLORIDE 20 MEQ TABLET PO SCH (09:34)
[2016-08-26] MEDS: THIAMINE 100 MG TABLET PO SCH (09:34)
[2016-08-26] MEDS: MULTIVITAMIN (CENTRUM) TABLET PO SCH (09:35)
[2016-08-26] MEDS: ENOXAPARIN 40 MG/0.4 ML SYRINGE SUBCUT SCH (09:35)
[2016-08-26] MEDS: PANTOPRAZOLE 40 MG TABLET PO SCH (09:35)
[2016-08-26] MEDS: INSULIN REGULAR 100 UNIT/ML SUBCUT SCH ×4 (09:54→21:31)
--- NOTE | 2016-08-26 10:08 | Hospitalist Progress Note ---
Assessment and Plan (1) CHF (congestive heart failure) Status: Acute Assessment and plan: Impression: 1. Acute diastolic heart failure 2. Possible pneumonia 3. Alcoholic cirrhosis 4. Deconditioning Plan: Recheck chest x-ray, and consider discontinuing antibiotics if the infiltrate is clearing. Once he is off of the IV antibiotics, he should be ready for transfer to the rehab hospital. This note was completed using [email or web address] voice recognition software. There may be case hardener errors as a result. Current Visit: Yes Qualifiers: Congestive heart failure type: diastolic Congestive heart failure chronicity: acute Qualified Code(s): I50.31 - Acute diastolic (congestive) heart failure Hospitalist: Subjective Interval history: Follow-up diastolic heart failure, possible pneumonia, alcoholic cirrhosis, and deconditioning. The patient was on BiPAP last night. He seems to be doing fairly well at this time. He again asked about going home. He is on IV Zosyn for the possible pneumonia, and we are also treating what appears to be diastolic congestive heart failure. Referral has been made to the [facility]. Exam - Constitutional Vitals: Period Temp Pulse Resp BP Sys/Lipscomb Pulse Ox Last 24 Hr 96.6 F-97.8 F 55-98 18-28 147-159/64-92 90-100 Vital signs are noted above. Heart is regular with distant tones. He has some decreased breath sounds in both bases on examination of the posterior lung gillespie. He is awake and alert. He requires assistance with mobility in the bed. Results - Labs CBC & BMP: 08/25/16 05:22 08/25/16 05:22
[2016-08-26] MEDS: DESITIN 4OZ/NYSTATIN 15 GRAM MIXTURE PASTE TOP SCH ×2 (12:03→21:18)
[2016-08-26] MEDS: DEXTROSE 5% NACL 0.45% 1,000 ML IV SCH (17:06)
[2016-08-26] MEDS: DONEPEZIL 5 MG TABLET PO SCH (21:19)
[2016-08-27] MEDS: ALBUTEROL/IPRATROPIUM 3 ML NEB RESP TX SCH ×6 (00:06→19:42)
[2016-08-27] MEDS: PIPERACILLIN/TAZOBACTAM 3,375 MG in SODIUM CHLORIDE 0.9% 100 ML IV SCH ×3 (01:53→16:46)
--- NOTE | 2016-08-27 09:17 | Hospitalist Progress Note ---
Assessment and Plan (1) CHF (congestive heart failure) Status: Acute Assessment and plan: Impression: 1. Acute diastolic heart failure 2. Possible pneumonia 3. Alcoholic cirrhosis 4. Deconditioning Plan: Recheck chest x-ray today, and we will discontinue antibiotics if the infiltrate is clearing. Once he is off of the IV antibiotics, he should be ready for transfer to the rehab hospital. This note was completed using [employer] voice recognition software. There may be group reservations coordinator errors as a result. Current Visit: Yes Qualifiers: Congestive heart failure type: diastolic Congestive heart failure chronicity: acute Qualified Code(s): I50.31 - Acute diastolic (congestive) heart failure Hospitalist: Subjective Interval history: Follow-up acute diastolic heart failure, possible pneumonia, cirrhosis, and deconditioning. Patient appears comfortable on the BiPAP mask. He again asked if he could go home. We are waiting on approval from the [facility]. The patient denies any dyspnea. He needs assistance with feeding. Exam - Constitutional Vitals: Period Temp Pulse Resp BP Sys/Lipscomb Pulse Ox Last 24 Hr 96.2 F-97.8 F 56-78 16-29 136-164/66-83 90-99 Vital signs are noted above. Heart is regular with distant tones. He has a few rhonchi in the chest. Abdomen is soft with no tenderness. He is awake and conversant. Results - Labs CBC & BMP: 08/25/16 05:22 08/25/16 05:22
[2016-08-27] MEDS: FUROSEMIDE 20 MG/2 ML VIAL IV SCH ×2 (09:49→16:45)
[2016-08-27] MEDS: methylPREDNISolone SOD SUC 40 MG/1 ML VIAL IV SCH ×2 (09:49→20:39)
[2016-08-27] MEDS: THIAMINE 100 MG TABLET PO SCH (09:50)
[2016-08-27] MEDS: LACTULOSE 20 GM/30 ML UDCUP PO SCH ×2 (09:50→20:39)
[2016-08-27] MEDS: POTASSIUM CHLORIDE 20 MEQ TABLET PO SCH (09:50)
[2016-08-27] MEDS: MULTIVITAMIN (CENTRUM) TABLET PO SCH (09:50)
[2016-08-27] MEDS: ALLOPURINOL 100 MG TABLET PO SCH (09:50)
[2016-08-27] MEDS: TAMSULOSIN 0.4 MG CAPSULE PO SCH (09:51)
[2016-08-27] MEDS: ENOXAPARIN 40 MG/0.4 ML SYRINGE SUBCUT SCH (09:51)
[2016-08-27] MEDS: PANTOPRAZOLE 40 MG TABLET PO SCH (09:51)
[2016-08-27] MEDS: FOLIC ACID 1 MG TABLET PO SCH (09:51)
--- NOTE | 2016-08-27 09:55 | XRay Report ---
XR chest 1V portable Indication: Pleural effusion Comparison: Chest x-ray dated August 24, 2016 Technique: Single frontal view of the chest. Findings: Continued cardiomegaly. Mildly improved coarse interstitial lung markings suggesting improved interstitial pulmonary edema. There is continued moderate layering right pleural fluid and small left pleural fluid. Visualized osseous and surrounding soft tissue structures appear grossly unchanged. Diffuse osteopenia. Right humeral head prosthesis. Left glenohumeral degenerative change. IMPRESSION: As above. PROCEDURE INTERPRETED AT [facility] DEPARTMENT OF RADIOLOGY Final Report Signed by: Dr Lai Farah
[2016-08-27] MEDS ORDERED: TUBERCULIN SKIN TEST 0.1 ML SYRINGE INTRADERM ONE (10:00)
[2016-08-27] MEDS: INSULIN REGULAR 100 UNIT/ML SUBCUT SCH ×4 (10:34→21:34)
--- NOTE | 2016-08-27 12:27 | Case Mgmt Physician Query Form ---
TB Signs and Symptoms Screening ([place]) INSTRUCTIONS: To be completed annually on residents/staff with a significant Tuberculin Skin Test (TST) upon admission/hire or a prior significant TST. To be completed on all staff at hire. Please respond to each listed symptom with an (X) in either the "YES" or "NO" box. Do you currently have any of the following symptoms: YES NO ( ) (x) A cough If yes, is it: ( ) Productive ( ) Non- productive ( ) ( x) Hemoptysis (spitting up blood) ( ) ( x) Chest pains ( ) ( x) Weight Loss ( ) ( x) Fever ( ) ( x) Night Sweats ( x) ( ) Weakness ( x) ( ) Loss of Appetite ( x) ( ) Difficulty Breathing If you answered YES" to any of the above questions, how long have symptoms been present? Comments: symptoms related to known medical problems MTDD
[2016-08-27] MEDS: COLLAGENASE OINT 30 GM TUBE TOP SCH (12:29)
[2016-08-27] MEDS: DESITIN 4OZ/NYSTATIN 15 GRAM MIXTURE PASTE TOP SCH ×2 (12:29→20:45)
[2016-08-27] MEDS: DEXTROSE 5% NACL 0.45% 1,000 ML IV SCH (12:30)
[2016-08-27] MEDS ORDERED: LORazepam 2 MG/1 ML VIAL IV PRN (16:28)
[2016-08-27] MEDS: MORPHINE 2 MG/1 ML SYRINGE IV PRN ×2 (16:45→20:40)
[2016-08-27] MEDS: DONEPEZIL 5 MG TABLET PO SCH (20:39)
[2016-08-28] MEDS: ALBUTEROL/IPRATROPIUM 3 ML NEB RESP TX SCH ×7 (00:04→23:43)
[2016-08-28] MEDS: PIPERACILLIN/TAZOBACTAM 3,375 MG in SODIUM CHLORIDE 0.9% 100 ML IV SCH ×2 (01:36→14:16)
--- NOTE | 2016-08-28 09:47 | Hospitalist Progress Note ---
Assessment and Plan (1) CHF (congestive heart failure) Status: Acute Assessment and plan: Impression: 1. Acute diastolic heart failure 2. Possible pneumonia 3. Alcoholic cirrhosis 4. Deconditioning Plan: Discontinue antibiotics. Continue diuretics. Continue physical therapy. Should be ready for swing bed soon. This note was completed using [employer] voice recognition software. There may be behavioral health associate errors as a result. Current Visit: Yes Qualifiers: Congestive heart failure type: diastolic Congestive heart failure chronicity: acute Qualified Code(s): I50.31 - Acute diastolic (congestive) heart failure Hospitalist: Subjective Interval history: Follow-up acute diastolic heart failure with pleural effusion, deconditioning, and cirrhosis. The patient still asks about going home. Occupational Therapy was in the room with him, and they report that he is improving. We discussed goals of going home and staying home, and I believe he understands that the swing bed would be helpful to help prevent readmission to the hospital Exam - Constitutional Vitals: Period Temp Pulse Resp BP Sys/Lipscomb Pulse Ox Last 24 Hr 96.9 F-97.4 F 52-91 16-32 145-162/65-77 94-99 Vital signs are noted above. Heart is regular with a soft systolic ejection murmur. He has decreased breath sounds in the right base. He is awake and alert Results - Labs CBC & BMP: 08/25/16 05:22 08/25/16 05:22 Lab Results: I have reviewed the past 24 hour labs - Diagnostic Findings Procedure: X-ray: pending (Chest x-ray may look a little better compared to a couple days ago.)
[2016-08-28] MEDS: ALLOPURINOL 100 MG TABLET PO SCH (09:54)
[2016-08-28] MEDS: INSULIN REGULAR 100 UNIT/ML SUBCUT SCH ×4 (09:54→21:59)
[2016-08-28] MEDS: LACTULOSE 20 GM/30 ML UDCUP PO SCH ×2 (09:55→20:16)
[2016-08-28] MEDS: MULTIVITAMIN (CENTRUM) TABLET PO SCH (09:55)
[2016-08-28] MEDS: THIAMINE 100 MG TABLET PO SCH (09:55)
[2016-08-28] MEDS: TAMSULOSIN 0.4 MG CAPSULE PO SCH (09:55)
[2016-08-28] MEDS: FOLIC ACID 1 MG TABLET PO SCH (09:55)
[2016-08-28] MEDS: FUROSEMIDE 20 MG/2 ML VIAL IV SCH ×2 (09:55→16:50)
[2016-08-28] MEDS: POTASSIUM CHLORIDE 20 MEQ TABLET PO SCH (09:55)
[2016-08-28] MEDS: ENOXAPARIN 40 MG/0.4 ML SYRINGE SUBCUT SCH (09:55)
[2016-08-28] MEDS: PANTOPRAZOLE 40 MG TABLET PO SCH (09:56)
[2016-08-28] MEDS: DESITIN 4OZ/NYSTATIN 15 GRAM MIXTURE PASTE TOP SCH ×2 (09:56→20:18)
[2016-08-28] MEDS: COLLAGENASE OINT 30 GM TUBE TOP SCH (09:56)
[2016-08-28] MEDS: methylPREDNISolone SOD SUC 40 MG/1 ML VIAL IV SCH ×2 (09:56→20:16)
[2016-08-28] MEDS: DEXTROSE 5% NACL 0.45% 1,000 ML IV SCH (12:24)
[2016-08-28] MEDS: DONEPEZIL 5 MG TABLET PO SCH (20:16)
[2016-08-29] MEDS: ALBUTEROL/IPRATROPIUM 3 ML NEB RESP TX SCH ×2 (03:00→07:30)
[2016-08-29 04:22] LABS: Albumin 2.4 G/DL (3.4-5.0); Calcium 8.6 MG/DL (8.5-10.1); Osmolality,Calculated 287.4 MOS/KG (273-304); Phosphorous 3.9 MG/DL (2.5-4.9); Potassium 4.3 MMOL/L (3.5-5.1)
[2016-08-29] MEDS: INSULIN REGULAR 100 UNIT/ML SUBCUT SCH ×2 (08:57→11:30)
[2016-08-29] MEDS: FUROSEMIDE 20 MG/2 ML VIAL IV SCH (10:11)
[2016-08-29] MEDS: POTASSIUM CHLORIDE 20 MEQ TABLET PO SCH (10:14)
[2016-08-29] MEDS: ALLOPURINOL 100 MG TABLET PO SCH (10:14)
[2016-08-29] MEDS: TAMSULOSIN 0.4 MG CAPSULE PO SCH (10:15)
[2016-08-29] MEDS: THIAMINE 100 MG TABLET PO SCH (10:15)
[2016-08-29] MEDS: MULTIVITAMIN (CENTRUM) TABLET PO SCH (10:15)
[2016-08-29] MEDS: PANTOPRAZOLE 40 MG TABLET PO SCH (10:16)
[2016-08-29] MEDS: FOLIC ACID 1 MG TABLET PO SCH (10:16)
[2016-08-29] MEDS: LACTULOSE 20 GM/30 ML UDCUP PO SCH (10:16)
[2016-08-29] MEDS: methylPREDNISolone SOD SUC 40 MG/1 ML VIAL IV SCH (10:17)
[2016-08-29] MEDS: DESITIN 4OZ/NYSTATIN 15 GRAM MIXTURE PASTE TOP SCH (10:19)
[2016-08-29] MEDS: ENOXAPARIN 40 MG/0.4 ML SYRINGE SUBCUT SCH (10:25)
[2016-08-29] MEDS: COLLAGENASE OINT 30 GM TUBE TOP SCH (10:32)
--- NOTE | 2016-08-29 10:35 | Discharge Summary ---
Hospital Course - Hospital Course Hospital Course: Discharge diagnosis: Alcoholic cirrhosis COPD with acute exacerbation Acute diastolic congestive heart failure Possible pneumonia Deconditioning The patient was admitted to the hospital with a multitude of medical problems as outlined above. He had what appeared to be heart failure and possibly some pneumonia as well. He also appeared to be having a COPD exacerbation. He was treated for these problems. His condition was very weak, and family requested swing bed admission. He is being transferred to [facility] today for ongoing rehabilitation in an attempt to get him strong enough to go home. Medication reconciliation has been performed. Regular diet. Activity as tolerated. Follow-up with local physician at [facility]. This note was completed using [employer] voice recognition software. There may be manager field errors as a result. Diagnosis - Discharge Diagnosis (1) CHF (congestive heart failure) Status: Acute Discharge Plan - Discharge Data Disposition: Disch/Xfer to [facility] Condition at Discharge: Stable Discharge Diet: advance to your usual diet Activity: as per physical therapy - Discharge Medications New Albuterol/Ipratropium Neb [Duoneb] 3 ml RESP TX RT Q4H Folic Acid Tab 1 mg PO DAILY tablet Insulin Regular [HumuLIN R] See Protocol SUBCUT ACHS unit Multivitamin (Centrum) [Centrum Tab] 1 tablet PO DAILY tablet Thiamine Tab [Vitamin B1 Tab] 100 mg PO DAILY tablet Collagenase Oint [Santyl Oint] 1 applic TOP DAILY applic Lactulose Liquid [Chronulac] 20 gm PO BID Continue Tamsulosin [Flomax] 0.4 mg PO DAILY Allopurinol 100 mg PO DAILY Donepezil [Aricept] 5 mg PO BEDTIME Metoprolol Succinate 100 mg PO DAILY Cilostazol [Pletal] 100 mg PO BID Discontinued Potassium Chloride [Klor-Con 10] 10 meq PO DAILY - Follow Up or Referral - Forms/Instructions Exam - Constitutional Vitals: Period Temp Pulse Resp BP Sys/Lipscomb Pulse Ox Last 24 Hr 97.1 F-98.0 F 58-82 17-22 147-184/69-83 92-100 Vital signs are noted above. Heart is regular with distant tones. He is awake and conversant Discharge Results Labs on day of discharge: Labs from last 24 hours 08/29/16 08/29/16 08/29/16 07:16 04:33 03:11 Sodium 140 Potassium 4.3 Chloride 96 L Carbon Dioxide 39 H Anion Gap 9.3 BUN 20 H Creatinine 0.80 GFR Calculation 85 BUN/Creatinine Ratio 25.00 H Glucose 208 H POC Glucose 241 H 247 H Calculated Osmolality 287.4 Calcium 8.6 Phosphorus 3.9 Albumin 2.4 L 08/29/16 08/28/16 08/28/16 00:22 20:20 16:14 Sodium Potassium Chloride Carbon Dioxide Anion Gap BUN Creatinine GFR Calculation BUN/Creatinine Ratio Glucose POC Glucose 216 H 172 H 138 H Calculated Osmolality Calcium Phosphorus Albumin 08/28/16 10:48 Sodium Potassium Chloride Carbon Dioxide Anion Gap BUN Creatinine GFR Calculation BUN/Creatinine Ratio Glucose POC Glucose 286 H Calculated Osmolality Calcium Phosphorus Albumin DS: Provider Date of admission: 08/20/16 00:44 Primary care physician: Lionel Garza, Attending physician on admission: German Clark MD Consults: 08/20/16 01:09 Consult to Case Mgmt/Social Srvs [CONS] Routine Reason for Case Mgmt/Social Srvs: Rehab Consult Comment: [facility] or [facility] 08/20/16 09:51 Consult to Pharmacy [CONS] Routine Reason for Pharmacy Consult: Dose/Manage Vancomycin 08/20/16 10:37 Consult to Physician [CONS] Routine Comment: lue arm wound need debridement Consulting Provider: Cooper Garay III. When should Consulting Provider be notified: Now Person Notified: estella Date Notified: 08/21/16 Time Notified: 09:00 Consult Notification Comment: she stated dr garay not office , dr bocanegra in today , consult sent to sahra 08/20/16 12:00 Consult to Wound Care - [place] [CONS] Routine Reason for Wound Care: Wound Care Management Consult Comment: LUE wound and sacral wound 08/21/16 13:22 Consult to Occupational Therapy [CONS] Routine Reason for Occupational Therapy: Evaluate and Treat Consult to Physical Therapy [CONS] Routine Reason for Physical Therapy: Evaluate and Treat Discharging clinician: Raghu Mosqueda MD Expected date of discharge: 08/29/16
[2016-08-29 11:48] VITALS: BP 166/74
== END 2016-08-29 12:35 | DRG 291 ==
LOC: EDBD → EDUNIT# → N.ED 21:24 → N.EDINP 08-20 00:44 → SUATTDRO 08-20 00:44 → N.TELEN 08-20 01:33 → N.CC 08-20 10:24 → N.2E 08-21 14:58
PROVIDERS: ADMIT Internal Medicine; ATTEND Internal Medicine Geriatric Medicine